=== PATIENT | female | born 1975 | race Two or more races ===

== ENCOUNTER 2025-03-07 06:08 | Day surgery (SDC) | payer OTHER ==
[2025-03-01 17:24] VITALS: BMI 24.3
[2025-03-07 06:35] VITALS: RESP 18
[2025-03-07] MEDS ORDERED: PROPOFOL 20 ML ONE (07:25)
[2025-03-07] MEDS ORDERED: MIDAZOLAM HCL 2 MG/2 ML SINGLE DOSE VIAL ONE (07:25)
[2025-03-07] MEDS ORDERED: LIDOCAINE HCL/PF 2% SDV 5ML VIAL ONE (07:28)
[2025-03-07] MEDS ORDERED: DEXAMETHASONE SOD PHOSPHATE 4 MG/1 ML VIAL ONE (07:51)
[2025-03-07] MEDS ORDERED: oxyCODONE HCL 5 MG TABLET PO PRN ×2 (07:51→08:29)
[2025-03-07] MEDS ORDERED: IBUPROFEN 800 MG/8 ML IJ IVPB PRN (07:51)
[2025-03-07] MEDS ORDERED: IBUPROFEN 600 MG TABLET (FP) PO PRN (07:51)
[2025-03-07] MEDS ORDERED: ONDANSETRON 4 MG/2 ML VIAL IVPUSH PRN ×2 (07:51→08:29)
[2025-03-07] MEDS ORDERED: ELECTROLYTE-148 SOLN 1,000 ML IV SCH (08:00)
[2025-03-07] MEDS ORDERED: LACTATED RINGERS SOLUTION 1,000 ML IV SCH (08:30)
[2025-03-07] MEDS ORDERED: KETOROLAC TROMETHAMINE 15 MG/ML VIAL IVPUSH PRN ×2 (08:30→08:45)
[2025-03-07] MEDS: ACETAMINOPHEN INJECTION 100 ML ONE (09:03)
[2025-03-07] MEDS: ACETAMINOPHEN 1000 MG/100 ML BAG IVPB ONE (09:03)
[2025-03-07 09:57] VITALS: TEMP 97.7
[2025-03-07 11:09] VITALS: BP 119/58; PULSE 70
== END 2025-03-07 10:22 | disposition home or self-care (01) ==
LOC: JASU-SURG 06:08
PROVIDERS: ATTEND Obstetrics & Gynecology
PROC: 0UB98ZZ Excision of Uterus, Via Natural or Artificial Opening Endoscopic (ICD-10-PCS; principal; 2025-03-07 07:30)
DX: N93.9 Abnormal uterine and vaginal bleeding, unspecified (principal); N84.1 Polyp of cervix uteri; N84.0 Polyp of corpus uteri
CPT/HCPCS: 81025; 88305-TC; 94760